=== PATIENT | male | born 1955 | race Caucasian/White ===

== ENCOUNTER 2021-02-01 08:27 | Outpatient (CLI) | payer MEDICARE ==
[~2021-02-01 08:27] MED LIST: ASPI81TA45 PO; FINA5TAB4 PO; LISI5TAB7 PO; LOVA20TA2 PO; METF500T17 PO; METO25TA35 PO; NITR0.4T41 SL; PARO20TA4 PO; TICA90TA PO
== END 2021-02-01 23:59 | disposition home or self-care (01) ==
LOC: CVU 08:27
PROVIDERS: ATTEND Internal Medicine Cardiovascular Disease
DX: I65.23 Occlusion and stenosis of bilateral carotid arteries (principal); R09.89 Other specified symptoms and signs involving the circulatory and respiratory systems; E78.2 Mixed hyperlipidemia; I25.10 Atherosclerotic heart disease of native coronary artery without angina pectoris
CPT/HCPCS: 93880